=== PATIENT | male | born 1985 | race Caucasian/White ===

== ENCOUNTER 2018-11-19 16:21 | Emergency (ER) | payer SELFPAY ==
[2018-11-19 16:28] VITALS: BMI 25.8
[2018-11-19] MEDS ORDERED: DiphenhydrAMINE 50 mg/ml Inj IM STA (17:09)
--- NOTE | 2018-11-19 17:09 | ED PDOC ---
Arrival/HPI - General Chief Complaint: Abnormal Skin Integrity Time Seen by Provider: 11/19/18 16:43 - History of Present Illness Narrative History of Present Illness (Text): 11/19/18 17:01 33 m brought in by ambulance for alcohol intoxication and laceration to left hand. As per nursing report, the patient was reported to be at work, cut himself at work, went home and put coffee grinds to attempt to stop the bleeding, waited two hours and then called 911 for medical attention because the bleeding didn't stop. Patient arrived in the ED awake and alert, intoxicated, uncooperative, had a large dressing over the left hand. Patient was triaged to a bed, became excessively agitated, began throwing items and exposing blood to others. A code felix was called and patient brought to [facility] room. No PMD Past Medical History - Provider Review Nursing Documentation Reviewed: Yes - Infectious Disease Hx of Infectious Diseases: None - Tetanus Immunization Tetanus Immunization: Unknown - Past Medical History Past Medical History: No Previous - Cardiac Hx Cardiac Disorders: No - Pulmonary Hx Respiratory Disorders: No - Neurological Hx Neurological Disorder: No - HEENT Hx HEENT Disorder: No - Renal Hx Renal Disorder: No - Endocrine/Metabolic Hx Endocrine Disorders: No - Hematological/Oncological Hx Blood Disorders: No - Integumentary Hx Dermatological Disorder: No - Musculoskeletal/Rheumatological Hx Musculoskeletal Disorders: No - Gastrointestinal Hx Gastrointestinal Disorders: No - Genitourinary/Gynecological Hx Genitourinary Disorders: No - Psychiatric Hx Depression: No (unable to obtain) Hx Emotional Abuse: No (unable to obtain) Hx Physical Abuse: No (unable to obtain) Hx Substance Use: No (unable to obtain) - Past Surgical History Past Surgical History: No Previous - Anesthesia Hx Anesthesia: No Hx Anesthesia Reactions: No Hx Malignant Hyperthermia: No - Suicidal Assessment Feels Threatened In Home Enviroment: No Family/Social History - Physician Review Nursing Documentation Reviewed: Yes Family/Social History: No Known Family HX Smoking Status: Current Some Days Smoker Hx Alcohol Use: Yes Hx Substance Use: No (unable to obtain) Hx Substance Use Treatment: No (unable to obtain) Allergies/Home Meds Allergies/Adverse Reactions: Allergies No Known Allergies Allergy (Verified 03/09/15 01:00) Review of Systems - Review of Systems Systems not reviewed;Unavailable: Uncooperative Medical Decision Making ED Course and Treatment: 11/19/18 17:10 patient is still yelling excessively and uncooperate, will add more medication to facilitate medical evaluation including full assessment of hand injury. 11/19/18 19:[address] james, plastics, accepts consult and would like surgical forceps fabricator to see patient. case d/w surgical forceps fabricator, will come to ED for eval. case endorsed to dr. houston. - Medication Orders Current Medication Orders: Discontinued Medications Ziprasidone (Geodon Inj) 20 mg IM STAT STA; Protocol Stop: 11/19/18 16:44 Disposition/Present on Arrival - Present on Arrival Any Indicators Present on Arrival: No History of DVT/PE: No History of Uncontrolled Diabetes: No Urinary Catheter: No History of Decub. Ulcer: No History Surgical Site Infection Following: None - Disposition Have Diagnosis and Disposition been Completed?: Yes Diagnosis: Alcohol intoxication, Hand laceration Disposition: HOME/ ROUTINE Disposition Time: 20:01 Condition: STABLE Discharge Instructions (ExitCare): Laceration Repair With Stitches (DC), Alcohol Abuse and Alcoholism (DC) Additional Instructions: Keep hand wound clean and dry/Medication as prescribed Must follow up at hand surgeon Dr. James's office this week to get hand evaluated for any tendon damage and stitches removed. Prescriptions: Cephalexin [cephalexin] 500 mg PO BID #14 cap Referrals: Fifi James MD [Staff Provider] - Follow up with primary Forms: [email or web address] (Mongolian)
[2018-11-19] MEDS ORDERED: Sodium Chloride 0.9% 1,000 ML IV STA ×2 (17:29)
[2018-11-19 17:40] VITALS: RESP 18
[2018-11-19 17:50] LABS: BASO # 0.04 K/mm3 (0.0-2.0); BASO % 0.5 % (0.0-3.0); EOS # 0.4 (0.0-0.7); EOS % 4.2 % (1.5-5.0); HEMOGLOBIN 15.3 g/dL (14.0-18.0); LYMPH # 5.5 (1.2-3.4); LYMPH % 63.3 % (22.0-35.0); MEAN CELL VOLUME 87.5 fl (80.0-105.0); MEAN CORPUSCULAR HEMOGLOBIN 31.3 pg (25.0-35.0); MEAN CORPUSCULAR HGB CONC 35.7 g/dl (31.0-37.0); MEAN PLATELET VOLUME 9.1 fl (7.0-11.0); MONO # 0.3 (0.1-0.6); MONO % 3.2 % (1.0-6.0); RBC 4.89 10^6/uL (3.5-6.1); RED CELL DISTRIBUTION WIDTH 11.6 % (11.5-14.5); WHITE BLOOD COUNT 8.7 10^3/uL (4.5-11.0)
[2018-11-19 17:53] LABS: ALB/GLOB RATIO 1.4 (1.1-1.8); ALBUMIN 4.4 g/dL (3.0-4.8); ALT/SGPT 35 U/L (7-56); AST/SGOT 29 U/L (17-59); BLOOD UREA NITROGEN 12 mg/dL (7-21); CALCIUM 8.8 mg/dL (8.4-10.5); GFR NON-AFRICAN AMERICAN > 60
[2018-11-19] MEDS ORDERED: TDAP Vaccine 0.5 mL Syr IM ONE (18:11)
[2018-11-19] MEDS ORDERED: Midazolam 2 MG/2 ML VIAL IM STA (19:20)
[2018-11-19] MEDS ORDERED: Bacitracin 500 Units/gm Oint Foilpak UD TOP ONE (19:22)
[2018-11-19] MEDS ORDERED: Lidocaine 1% Inj (20ml) IJ STA (19:22)
--- NOTE | 2018-11-19 20:20 | PCM.PROC ---
Procedures Attestation:: I certify that I have explained the specified Operation(s) or Procedure(s), risks, benefits and reasonable alternatives to the Patient and/or other person responsible. The opportunity was given to ask questions and all questions answered - Laceration lidocaine 1% simple, single layer linear irrigated extensively left 4-0 other local infiltration running Site: hand Side (if applicable): left Size (cm): 3 (Tendon explored, no lac ) Description: linear Depth: simple, single layer Anesthesia used: lidocaine 1% Anesthesia technique: local infiltration Amount (mLs): 5 Pre-repair: wound explored, irrigated extensively Skin layer closed with: other (Nylon) Size: 4-0 Number of sutures: 1 Technique: running (Pt is intoxicated and uncooperative unable to obtain history and unable to test for tendon laceration. )
--- NOTE | 2018-11-19 21:22 | ED PDOC ---
Physical Exam Vital Signs Temp Pulse Resp BP Pulse Ox 11/19/18 19:10 108 H 18 112/67 99 11/19/18 17:41 76 18 98/64 L 98 11/19/18 17:00 98 F 77 18 95/60 L 99 Medical Decision Making ED Course and Treatment: 11/19/18 20:00 Case endorsed to me by Dr. Garcia, pending sobriety, wound repair as per his discussion with Dr. Landis, who had recommended surgical attendant repair the wound and follow-up with him. Pt, whose past medical history includes alcohol abuse, who presented for alcohol intoxication and left hand laceration. Pt noted to be uncooperative/agitated on arrival. 11/19/18 23:58 On re-evaluation, pt is awake, alert, and in no acute distress. Clinically sober, ambulating with steady gait. Explained need for follow-up with plastics this week with pt, who verbalizes understanding. - Lab Interpretations Lab Results: Total Bilirubin 0.3 mg/dL (0.2-1.3) 11/19/18 17:30 AST 29 U/L (17-59) 11/19/18 17:30 ALT 35 U/L (7-56) 11/19/18 17:30 Alkaline Phosphatase 68 U/L (38-126) 11/19/18 17:30 Total Protein 7.7 g/dL (5.8-8.3) 11/19/18 17:30 Albumin 4.4 g/dL (3.0-4.8) 11/19/18 17:30 Globulin 3.2 gm/dL 11/19/18 17:30 Albumin/Globulin Ratio 1.4 (1.1-1.8) 11/19/18 17:30 - Medication Orders Current Medication Orders: Discontinued Medications Bacitracin (Bacitracin) 1 ea TOP ONCE ONE Stop: 11/19/18 19:23 Last Admin: 11/19/18 20:35 Dose: 1 ea Diphenhydramine HCl (Benadryl) 50 mg IM STAT STA Stop: 11/19/18 17:10 Last Admin: 11/19/18 17:20 Dose: 50 mg IM Administration Charges Document 11/19/18 17:20 SRE (Rec: 11/19/18 17:20 SRE [facility] [id number]) Injection Site MAR Injection Site Left Vastus Lateralis Charges for Administration # of IM Administrations 1 Sodium Chloride (Sodium Chloride 0.9%) 1,000 mls @ 999 mls/hr IV .Q1H1M STA Stop: 11/19/18 18:29 Last Admin: 11/19/18 18:27 Dose: 999 mls/hr eMAR Start Stop Document 11/19/18 18:27 SRE (Rec: 11/19/18 18:27 SRE [facility] [id number]) Intravenous Solution Start Date 11/19/18 Start Time 18:00 End Date 11/19/18 End time 19:00 Total Infusion Time 60 Sodium Chloride (Sodium Chloride 0.9%) 1,000 mls @ 999 mls/hr IV .Q1H1M STA Stop: 11/19/18 18:29 Last Admin: 11/19/18 17:36 Dose: 999 mls/hr eMAR Start Stop Document 11/19/18 17:36 SRE (Rec: 11/19/18 17:36 SRE [facility] [id number]) Intravenous Solution Start Date 11/19/18 Start Time 17:25 End Date 11/19/18 End time 18:25 Total Infusion Time 60 Lidocaine HCl (Lidocaine 1% (20ml)) 20 ml IJ STAT STA Stop: 11/19/18 19:23 Last Admin: 11/19/18 20:35 Dose: 1 ml Comments: adminsitered by Dr. Smith Lorazepam (Ativan) 1 mg IM ONCE ONE; Protocol Stop: 11/19/18 17:10 Last Admin: 11/19/18 17:18 Dose: 1 mg IM Administration Charges Document 11/19/18 17:18 SRE (Rec: 11/19/18 17:19 SRE [facility] [id number]) Injection Site MAR Injection Site Left Vastus Lateralis Charges for Administration # of IM Administrations 1 Tetanus/Reduced Diphtheria/Acell Pertussis (Boostrix Vaccine Inj) 0.5 ml IM .ONCE ONE Stop: 11/19/18 18:12 Last Admin: 11/19/18 19:20 Dose: 0.5 ml Immunization Registry Document 11/19/18 19:20 IT (Rec: 11/19/18 19:20 IT [id number]) [facility]-Date provided 11/19/18 MAR Immunization Data Document 11/19/18 19:20 IT (Rec: 11/19/18 19:20 IT [id number]) Immunization Data Vaccine Information Sheet Given Yes Ziprasidone (Geodon Inj) 20 mg IM STAT STA; Protocol Stop: 11/19/18 16:44 Last Admin: 11/19/18 17:00 Dose: 20 mg IM Administration Charges Document 11/19/18 17:00 SRE (Rec: 11/19/18 17:12 SRE [id number]) Injection Site MAR Injection Site Right Vastus Lateralis Charges for Administration # of IM Administrations 1 Disposition/Present on Arrival - Present on Arrival Any Indicators Present on Arrival: No History of DVT/PE: No History of Uncontrolled Diabetes: No Urinary Catheter: No History of Decub. Ulcer: No History Surgical Site Infection Following: None - Disposition Have Diagnosis and Disposition been Completed?: Yes Diagnosis: Alcohol intoxication, Hand laceration Disposition: HOME/ ROUTINE Disposition Time: 00:10 Condition: STABLE Discharge Instructions (ExitCare): Laceration Repair With Stitches (DC), Alcohol Abuse and Alcoholism (DC) Additional Instructions: Keep hand wound clean and dry/Medication as prescribed Must follow up at hand surgeon Dr. Landis's office this week to get hand evaluated for any tendon damage and stitches removed. Prescriptions: Cephalexin [cephalexin] 500 mg PO BID #14 cap Referrals: Fifi Landis MD [Staff Provider] - Follow up with primary Forms: [employer] (Macanese)
[2018-11-20 00:08] VITALS: BP 115/78; PULSE 88; TEMP 98.6; O2SAT 98
[2018-11-20 13:12] LABS: HEPATITIS A IGM NEGATIVE (NEGATIVE); HEPATITIS B CORE AB NEGATIVE (NEGATIVE)
[2018-11-20 13:14] LABS: HEPATITIS B SURFACE AG Negative (NEGATIVE)
[2018-11-20 13:24] LABS: HEPATITIS C ANTIBODY NEGATIVE (NEGATIVE)
== END 2018-11-20 00:08 | disposition home or self-care (01) ==
LOC: ED 16:21
DX: F10.129 Alcohol abuse with intoxication, unspecified (principal); S61.412A Laceration without foreign body of left hand, initial encounter; W45.8XXA Other foreign body or object entering through skin, initial encounter; Y99.0 Civilian activity done for income or pay; Z23 Encounter for immunization
CPT/HCPCS: 12002; 80053; 80074; 85025; 86592; 86703; 86706; 90471; 90715; 96360; 96361; 96372; 99284; G0480; J1200; J2060; J3486; J7030